=== PATIENT | male | born 1945 ===

== ENCOUNTER → 2019-03-03 | Outpatient (CLI) | payer MEDICARE ==
[~2019-03-03] VITALS: Ht 175.3 cm; Wt 118.0 kg
[~2019-03-03] MED LIST: ATOR40TA28 PO; CARV25 PO; CLOP75TA3 PO; FISH1CAP27 PO; FLUT16H NASAL; IPRA4AER IH; MONT10TA21 PO; RANO500T3 PO
[2019-03-03 11:57] VITALS: BP 104/62
== END | disposition home or self-care (01) ==
LOC: SRCNTR 11:27
PROVIDERS: ATTEND Internal Medicine Clinical Cardiac Electrophysiology
DX: I11.0 Hypertensive heart disease with heart failure (principal); I50.9 Heart failure, unspecified; E78.5 Hyperlipidemia, unspecified; K92.1 Melena; E78.00 Pure hypercholesterolemia, unspecified; I48.0 Paroxysmal atrial fibrillation; Z79.01 Long term (current) use of anticoagulants
CPT/HCPCS: G0463